=== PATIENT | male | born 1990 | race Two or more races ===

== ENCOUNTER 2021-09-10 12:54 | Emergency (ER) | payer OTHER ==
[~2021-09-10] VITALS: Ht 182.9 cm; Wt 81.6 kg
== END 2021-09-10 18:11 | disposition home or self-care (01) ==
LOC: ER 12:54
DX: B34.9 Viral infection, unspecified (principal); J02.9 Acute pharyngitis, unspecified; Z20.822 Contact with and (suspected) exposure to COVID-19

== ENCOUNTER 2021-09-11 19:25 | Emergency (ER) | payer OTHER ==
[~2021-09-11] VITALS: Ht 160 cm; Wt 76.7 kg
== END 2021-09-12 00:30 | disposition home or self-care (01) ==
LOC: ER 19:25
DX: D69.6 Thrombocytopenia, unspecified (principal); A90 Dengue fever [classical dengue]